=== PATIENT | female | born 1975 | race Caucasian/White ===

== ENCOUNTER → 2017-08-04 | Outpatient (CLI) | payer MEDICAID ==
[~2017-08-04] MED LIST: OXYC-360 PO; PRENTAB62 PO
== END ==
LOC: HPND 09:37
DX: O09.522 Supervision of elderly multigravida, second trimester (principal); Z36.3 Encounter for antenatal screening for malformations
CPT/HCPCS: 76811

== ENCOUNTER → 2017-09-09 | Outpatient (CLI) | payer MEDICAID | LOC: HPND 09:17 | DX: O09.523 Supervision of elderly multigravida, third trimester (principal) | CPT/HCPCS: 76816 ==